=== PATIENT | female | born 1945 | race Caucasian/White ===

== ENCOUNTER 2020-05-02 21:07 | Emergency (ER) | payer MEDICARE, BC ==
[2020-05-02 21:53] VITALS: BP 137/72; PULSE 73
[2020-05-02] MEDS ORDERED: Doxycycline 100 MG Cap ONE (22:00)
--- NOTE | 2020-05-02 22:27 | EDM.PDOC ---
ED HPI GENERAL MEDICAL PROBLEM - General Chief Complaint: General Stated Complaint: TICK Time Seen by Provider: 05/02/20 22:00 Source of Information: Reports: Patient History Limitations: Reports: No Limitations - History of Present Illness INITIAL COMMENTS - FREE TEXT/NARRATIVE: Patient with tick bite to left flank that was partially removed by family. There is still a piece embedded in the skin. Patient denies any itchy, swelling, rash or pain. - Related Data Allergies Allergy/AdvReac Type Severity Reaction Status Date / Time No Known Allergies Allergy Verified 09/08/13 12:26 Home Meds: Home Meds Aspirin 81 mg PO DAILY 05/02/20 [History] Past Medical History - Past Health History Medical/Surgical History: Denies Medical/Surgical History HEENT History: Reports: None Cardiovascular History: Reports: None Respiratory History: Reports: None Gastrointestinal History: Reports: None Other MEDICAL TECHNOLOGIST HEMATOLOGY History: parity: 3, gravity: 3 Endocrine/Metabolic History: Reports: None Oncologic (Cancer) History: Reports: None - Past Surgical History Other HEENT Surgeries/Procedures: wears glasses Other Neurological Surgeries/Procedures: no changes in sensation Other Musculoskeletal Surgeries/Procedures:: no cervical pain, no GH difficulties, no difficulty with UE motion. bunion surgery , tonsillectomy, questionable bone density concerns Social & Family History - Family History Family Medical History: Noncontributory - Tobacco Use Smoking Status *Q: Never Smoker - Caffeine Use Caffeine Use: Reports: Coffee - Alcohol Use Days Per Week of Alcohol Use: 7 Number of Drinks Per Day: 1 Total Drinks Per Week: 7 - Recreational Drug Use Recreational Drug Use: No ED ROS GENERAL - Review of Systems Review Of Systems: Comprehensive ROS is negative, except as noted in HPI. ED EXAM, GENERAL - Physical Exam Exam: See Below Free Text/Narrative:: Small, black tick head embedded into skin in left flank. Slight erythema surrounding bite. No swelling and non-tender Exam Limited By: No Limitations General Appearance: Alert, No Apparent Distress ED GENERAL MEDICAL PROCEDURES - Additional/Other Procedure(s) Other (Free Text) Procedure(s): foreign body removal - used #11 blade and removed tick head successfully Course - Vital Signs Last Recorded V/S: Last Vital Signs Temp 36.8 C 05/02/20 21:36 Pulse 73 05/02/20 21:36 Resp 18 05/02/20 21:36 BP 137/72 05/02/20 21:36 Pulse Ox 99 05/02/20 21:36 Departure - Departure Time of Disposition: 22:27 Disposition: Home, Self-Care 01 Condition: Good Clinical Impression: Tick bite Qualifiers: Encounter type: initial encounter Qualified Code(s): W57.XXXA - Bitten or stung by nonvenomous insect and other nonvenomous arthropods, initial encounter - Discharge Information *PRESCRIPTION DRUG MONITORING PROGRAM REVIEWED*: Not Applicable *COPY OF PRESCRIPTION DRUG MONITORING REPORT IN PATIENT SUNNY: Not Applicable Instructions: Tick Bite Information, Adult, [id number] Forms: ED Department Discharge Additional Instructions: Discharge home. Doxycycline 100mg every 12 hours by mouth for 10 days. Start tonight. Take with yogurt. Watch for signs of infection. Follow up as needed in the clinic. Sepsis Event Note (ED) - Evaluation Sepsis Screening Result: No Definite Risk - Focused Exam Vital Signs: Vital Signs Temp Pulse Resp BP Pulse Ox 05/02/20 21:36 36.8 C 73 18 137/72 99 - Assessment/Plan Plan: doxycycline 100 mg PO BID x 10 days. Take with food and take probiotics daily. Return to the ED for fever >102, unable to tolerate fluids, difficulty breathing/swallowing, and/or persistent/worsening symptoms.
== END 2020-05-02 22:15 | disposition home or self-care (01) ==
LOC: LB.ED 21:07
DX: S30.861A Insect bite (nonvenomous) of abdominal wall, initial encounter (principal); Z79.82 Long term (current) use of aspirin; W57.XXXA Bitten or stung by nonvenomous insect and other nonvenomous arthropods, initial encounter
CPT/HCPCS: 99282; A9270

== ENCOUNTER 2023-06-23 10:28 | Day surgery (SDC) | payer MEDICARE, BC ==
[~2023-06-23 10:28] MED LIST: Metoclopramide 10 MG/2 ML SDV IV PRN
[2023-06-23] MEDS: Sodium Chloride 0.9% 1,000 ML IV SCH (11:33)
[2023-06-23] MEDS ORDERED: Propofol 200 MG/20 ML SDV ONE (13:00)
[2023-06-23 13:12] VITALS: BP 93/59; PULSE 60
== END 2023-06-23 14:00 | disposition home or self-care (01) ==
LOC: LB.SDS 10:28
PROVIDERS: ATTEND Surgery
DX: Z12.11 Encounter for screening for malignant neoplasm of colon (principal); K57.30 Diverticulosis of large intestine without perforation or abscess without bleeding
CPT/HCPCS: J2704; J7030